=== PATIENT | female | born 1980 | race American Indian/Alaskan Native ===

== ENCOUNTER 2019-04-03 17:45 | Emergency (ER) | payer MEDICAID ==
--- NOTE | 2019-04-03 17:53 | Event Note ---
ED Screening Note Date of service: 04/03/19 Time: 17:52 ED Screening Note: 38 y/o female comes in for SALINAS, Dizziness and blurred vision. Also having right lower back pain. This initial assessment/diagnostic orders/clinical plan/treatment(s) is/are subject to change based on patients health status, clinical progression and re- assessment by fellow clinical providers in the ED. Further treatment and workup at subsequent clinical providers discretion. Patient/guardian urged not to elope from the ED as their condition may be serious if not clinically assessed and managed. Initial orders include:
[2019-04-03 17:54] VITALS: BP 99/59
[2019-04-03] MEDS ORDERED: BENADRYL PO ONE (20:13)
[2019-04-03] MEDS ORDERED: REGLAN PO ONE (20:13)
[2019-04-03] MEDS ORDERED: TORADOL IM ONE (20:13)
--- NOTE | 2019-04-03 20:19 | Emergency Department Report ---
ED Headache HPI - General Chief Complaint: Headache Stated Complaint: HEADACHE/VOMITING/BLURR VISION Time Seen by Provider: 04/03/19 19:47 - History of Present Illness Initial Comments: Patient is a 38-year-old female who presents to the emergency room with complaints of a headache that began yesterday. she states the headache was located on the right side and caused blurry vision on the right side yesterday. she states today she had pain on the left side and had blurry vision on the left side. she denies any visual disturbances currently. She denies any numbness or weakness, neck pain, fever, speech disturbance, or gait disturbance. She states she has associated nausea and one episode of emesis. pt states she has had headaches before but this one feels worse. She took Tylenol without much relief. denies any past medical history or allergies to medications. Her LNMP was March 23. Allergies/Adverse Reactions: Allergies No Known Allergies Allergy (Unverified 04/03/19 17:53) ED Review of Systems ROS: Stated complaint: HEADACHE/VOMITING/BLURR VISION Other details as noted in HPI Comment: All other systems reviewed and negative ED Past Medical Hx - Social History Smoking Status: Never Smoker Substance Use Type: None ED Physical Exam - General Limitations: No Limitations General appearance: alert, in no apparent distress - Head Head exam: Present: atraumatic, normocephalic - Eye Eye exam: Present: normal appearance, PERRL, EOMI. Absent: scleral icterus, conjunctival injection, nystagmus, periorbital swelling, periorbital tenderness - ENT ENT exam: Present: mucous membranes moist - Respiratory Respiratory exam: Present: normal lung sounds bilaterally. Absent: respiratory distress, wheezes, rales, rhonchi, stridor, chest wall tenderness, accessory muscle use, decreased breath sounds, prolonged expiratory - Cardiovascular Cardiovascular Exam: Present: regular rate, normal rhythm, normal heart sounds. Absent: systolic murmur, diastolic murmur, rubs, gallop - Neurological Exam Neurological exam: Present: alert, oriented X3, CN II-XII intact, normal gait, other (normal finger to nose, normal heel to hilliard, equal maintenance helper utility engineer strength, 5/5 strength in the BUE/BLE, sensation intact throughout, no focal neuro deficit). Absent: motor sensory deficit - Psychiatric Psychiatric exam: Present: normal affect, normal mood - Skin Skin exam: Present: warm, dry, intact ED Course Vital Signs 04/03/19 17:53 Temperature 98.1 F Pulse Rate 68 Respiratory 16 Rate Blood Pressure 99/59 O2 Sat by Pulse 98 Oximetry ED Medical Decision Making - Lab Data Lab Results 04/03/19 04/03/19 Range/Units 19:00 20:07 Urine Color Yellow (Yellow) Urine Turbidity Slightly-cloudy (Clear) Urine pH 6.0 (5.0-7.0) Ur Specific [place] 1.025 (1.003-1.030) Urine Protein <15 mg/dl (Negative) mg/dL Urine Glucose (UA) Neg (Negative) mg/dL Urine Ketones Neg (Negative) mg/dL Urine Blood Neg (Negative) Urine Nitrite Neg (Negative) Urine Bilirubin Neg (Negative) Urine Urobilinogen < 2.0 (<2.0) mg/dL Ur Leukocyte Esterase Neg (Negative) Urine WBC (Auto) 3.0 (0.0-6.0) /HPF Urine RBC (Auto) 2.0 (0.0-6.0) /HPF U Epithel Cells (Auto) 9.0 (0-13.0) /HPF Urine Mucus 1+ /HPF Urine HCG, Qual Negative (Negative) Vital Signs 04/03/19 17:53 Temperature 98.1 F Pulse Rate 68 Respiratory 16 Rate Blood Pressure 99/59 O2 Sat by Pulse 98 Oximetry - Radiology Data Radiology results: report reviewed Nonenhanced CT scan of the brain: INDICATION: SALINAS, blurred vision. TECHNIQUE: Routine CT head without contrast. Sagittal and coronal reformatted images were obtained. All CT scans at this location are performed using CT dose reduction for ALARA by means of automated exposure control. COMPARISON: None. FINDINGS: BRAIN / INTRACRANIAL CONTENTS: No acute hemorrhage, mass effect, midline shift, hydrocephalus, or acute, large territorial infarct. No chronic infarct or focal atrophy. Normal brain volume and ventricular/sulcal size for age. No significant white matter abnormality. CRANIOCERVICAL JUNCTION: No significant abnormality. ORBITS: No significant abnormality of visualized orbits. SINUSES / MASTOIDS: No significant abnormality of the visualized paranasal sinuses or mastoid air cells. ADDITIONAL FINDINGS: None. IMPRESSION: Normal nonenhanced CT scan of the brain Signer Name: Kymberly Thompson MD Signed: 04/03/2019 9:10 PM Workstation Name: [id number] Transcribed By: BS Dictated By: Kymberly Mccloud MD Electronically Authenticated By: Kymberly Mccloud MD Signed Date/Time: 04/03/192109 - Medical Decision Making Patient is a 38-year-old female who presents to the emergency room with complaints of a headache that began yesterday. she states the headache was located on the right side and caused blurry vision on the right side yesterday. she states today she had pain on the left side and had blurry vision on the left side. she denies any visual disturbances currently. She denies any numbness or weakness, neck pain, fever, speech disturbance, or gait disturbance. She states she has associated nausea and one episode of emesis. pt states she has had headaches before but this one feels worse. She took Tylenol without much relief. denies any past medical history or allergies to medications. Her LNMP was March 23. no neuro deficits on exam. VSS. UA is normal. urine preg is negative. CT head with no acute process. pt given toradol, reglan, and benadryl and SALINAS resolved. advised pt to please drink plenty of water. May take [id number] medication for headaches. follow up with a primary care doctor in the next 2-3 days. Return to the emergency room for any new or worsening symptoms. - Differential Diagnosis migraine, mass, bleed, aneursym, sinusitis, cluster SALINAS, tension SALINAS Critical care attestation.: If time is entered above; I have spent that time in minutes in the direct care of this critically ill patient, excluding procedure time. ED Disposition Clinical Impression: Headache Qualifiers: Headache type: unspecified Headache chronicity pattern: acute headache Intractability: not intractable Qualified Code(s): R51 - Headache Disposition: DC-01 TO HOME OR SELFCARE Is pt being admited?: No Does the pt Need Aspirin: No Condition: Stable Instructions: Acute Headache (ED) Additional Instructions: Please drink plenty of water. May take [id number] medication for headaches. follow up with a primary care doctor in the next 2-3 days. Return to the emergency room for any new or worsening symptoms. Referrals: PAULINO GARCIA MD [Primary Care Provider] - 2-3 Days Forms: Work/School Release Form(ED) Time of Disposition: 21:17 Print Language: GEORGIAN
[2019-04-03 20:29] LABS: HCG Qualitative,Urine Negative (Negative)
[2019-04-03 20:30] LABS: Bilirubin,Urine NEG (Negative); Blood,Urine NEG (Negative); Color,Urine Yellow (Yellow); Mucus,Urine 1+ /HPF; Protein,Urine <15 mg/dL mg/dL (Negative); Urobilinogen,Urine < 2.0 mg/dL (<2.0)
--- NOTE | 2019-04-03 21:15 | Cat Scan Report ---
Nonenhanced CT scan of the brain: INDICATION: SALINAS, blurred vision. TECHNIQUE: Routine CT head without contrast. Sagittal and coronal reformatted images were obtained. A ll CT scans at this location are performed using CT dose reduction for ALARA by means of automated ex posure control. COMPARISON: None. FINDINGS: BRAIN / INTRACRANIAL CONTENTS: No acute hemorrhage, mass effect, midline shift, hydrocephalus, or acu te, large territorial infarct. No chronic infarct or focal atrophy. Normal brain volume and ventricul ar/sulcal size for age. No significant white matter abnormality. CRANIOCERVICAL JUNCTION: No significant abnormality. ORBITS: No significant abnormality of visualized orbits. SINUSES / MASTOIDS: No significant abnormality of the visualized paranasal sinuses or mastoid air alfred ls. ADDITIONAL FINDINGS: None. IMPRESSION: Normal nonenhanced CT scan of the brain Signer Name: Kymberly Thompson MD Signed: 04/03/2019 9:10 PM Workstation Name: [id number]
== END 2019-04-03 22:00 | disposition home or self-care (01) ==
LOC: ED 17:45
DX: R51 Headache (principal); R11.2 Nausea with vomiting, unspecified; H53.8 Other visual disturbances
CPT/HCPCS: 70450; 81001; 81025; 96372; 99284; J1885